=== PATIENT | male | born 1965 | race Caucasian/White ===

== ENCOUNTER 2021-06-26 11:26 | Day surgery (SDC) | payer MEDICARE ==
[2021-06-26] MEDS ORDERED: Depo-Medrol 40 MG/ML IM ONE (11:27)
[2021-06-26] MEDS ORDERED: LIDOCAINE HCL 2% 100 MG/5 ML IJ ONE (11:27)
[2021-06-26] MEDS ORDERED: DIPRIVAN 200 MG/20 ML IV ONE (12:37)
[2021-06-26] MEDS ORDERED: Lactated Ringers 1,000 ML IV ONE (12:47)
--- NOTE | 2021-06-27 09:33 | XRAY ---
Indication: Bilateral L4-S1 MBB. Intraoperative fluoroscopy provided for 5 seconds. Single digital spot image submitted for interpretation demonstrates posterior needle tips projecting over the expected left and right L4-S1 nerve roots. Correlate with intraoperative findings/report.
--- NOTE | 2021-06-27 09:59 | XRAY ---
5 seconds of fluoroscopy was used in surgery for a bilateral L4-S1 MBB.
== END 2021-06-26 13:01 | disposition home or self-care (01) ==
LOC: SDC-PAIN 11:26
PROVIDERS: ATTEND Psychiatry & Neurology Pain Medicine
DX: M47.816 Spondylosis without myelopathy or radiculopathy, lumbar region (principal); Z79.899 Other long term (current) drug therapy
CPT/HCPCS: 64493; 64494; 72020; 77002; J1030; J2704

== ENCOUNTER 2021-08-21 10:32 | Day surgery (SDC) | payer MEDICARE ==
[2021-08-21] MEDS ORDERED: Xylocaine 1% Vial 30 ML PF IJ ONE (10:33)
[2021-08-21] MEDS ORDERED: Depo-Medrol 40 MG/ML IM ONE (10:33)
[2021-08-21] MEDS ORDERED: Lactated Ringers 1,000 ML IV ONE (12:26)
[2021-08-21] MEDS ORDERED: DIPRIVAN 200 MG/20 ML IV ONE (12:41)
--- NOTE | 2021-08-21 13:37 | XRAY ---
Indication: Left T8-T10 MBB. Intraoperative fluoroscopy provided for 11 seconds. Single digital spot image submitted for interpretation demonstrates posterior needle tips projecting over the expected left T8-T10 nerve roots. Correlate with intraoperative findings/report.
--- NOTE | 2021-08-21 13:45 | XRAY ---
11 seconds fluoroscopy time in surgery for left T8-T10 MBB.
== END 2021-08-21 13:05 | disposition home or self-care (01) ==
LOC: SDC-PAIN 10:32
PROVIDERS: ATTEND Psychiatry & Neurology Pain Medicine
DX: M47.814 Spondylosis without myelopathy or radiculopathy, thoracic region (principal); Z79.899 Other long term (current) drug therapy
CPT/HCPCS: 64490; 64491; 72020; 77002; J1030; J2001; J2704

== ENCOUNTER 2021-09-17 09:43 | Day surgery (SDC) | payer MEDICARE ==
[2021-09-17] MEDS ORDERED: Marcaine Mpf 0.5% Vial 30 Ml IJ ONE (09:44)
[2021-09-17] MEDS ORDERED: Depo-Medrol 40 MG/ML IM ONE (09:44)
[2021-09-17] MEDS ORDERED: DIPRIVAN 200 MG/20 ML IV ONE (11:19)
[2021-09-17] MEDS ORDERED: Lactated Ringers 1,000 ML IV ONE (11:32)
--- NOTE | 2021-09-17 16:47 | XRAY ---
9 seconds of fluoroscopy was used in surgery for a left L3-S1 MBB.
--- NOTE | 2021-09-18 13:30 | XRAY ---
Indication: Left L3-S1 MBB. Intraoperative fluoroscopy provided for 9 seconds. Single digital spot image submitted for interpretation demonstrates posterior needle tips projecting over the expected left and L3-S1 nerve roots. Correlate with intraoperative findings/report.
== END 2021-09-17 11:37 | disposition home or self-care (01) ==
LOC: SDC-PAIN 09:43
PROVIDERS: ATTEND Psychiatry & Neurology Pain Medicine
DX: M47.816 Spondylosis without myelopathy or radiculopathy, lumbar region (principal); Z79.899 Other long term (current) drug therapy
CPT/HCPCS: 64493; 64494; 64495; 72020; 77002; J1030; J2704

== ENCOUNTER 2021-10-15 14:54 | Day surgery (SDC) | payer MEDICARE ==
[2021-10-15] MEDS ORDERED: XYLOCAINE-MPF 1% 5ML SDV IJ ONE (14:55)
[2021-10-15] MEDS ORDERED: Marcaine Mpf 0.5% Vial 30 Ml IJ ONE (14:55)
[2021-10-15] MEDS ORDERED: DIPRIVAN 200 MG/20 ML IV ONE (18:16)
[2021-10-15] MEDS ORDERED: Lactated Ringers 1,000 ML IV ONE (19:29)
--- NOTE | 2021-10-15 21:31 | XRAY ---
Indication: Left L4-S1 RFA. Intraoperative fluoroscopy provided for 28 seconds. 3 digital spot image submitted for interpretation demonstrates posterior needle tips projecting over the expected left L4-S1 nerve roots. Correlate with intraoperative findings/report.
--- NOTE | 2021-10-16 09:13 | XRAY ---
28 seconds of fluoroscopy was used in surgery for a left L4-S1 RFA.
== END 2021-10-15 18:44 | disposition home or self-care (01) ==
LOC: SDC-PAIN 14:54
PROVIDERS: ATTEND Psychiatry & Neurology Pain Medicine
DX: M47.816 Spondylosis without myelopathy or radiculopathy, lumbar region (principal); Z79.899 Other long term (current) drug therapy
CPT/HCPCS: 64635; 64636; 72100; 77002; J2704

== ENCOUNTER 2021-10-22 11:53 | Day surgery (SDC) | payer MEDICARE ==
[2021-10-22] MEDS ORDERED: LIDOCAINE HCL 1% 50 MG/5 ML VL PF IJ ONE (11:54)
[2021-10-22] MEDS ORDERED: Marcaine Mpf 0.5% Vial 30 Ml IJ ONE (11:54)
[2021-10-22] MEDS ORDERED: Depo-Medrol 40 MG/ML IM ONE (11:54)
[2021-10-22] MEDS ORDERED: DIPRIVAN 200 MG/20 ML IV ONE (12:45)
--- NOTE | 2021-10-22 13:46 | XRAY ---
Indication: Right L4-S1 RFA. Intraoperative fluoroscopy provided for 12 seconds. 3 digital spot image submitted for interpretation demonstrates posterior needle tips projecting over the expected right L4-S1 nerve roots. Correlate with intraoperative findings/report.
--- NOTE | 2021-10-22 14:59 | XRAY ---
12 seconds fluoroscopy time in surgery for right L4-S1 RFA.
[2021-10-22] MEDS ORDERED: Lactated Ringers 1,000 ML IV ONE (15:12)
== END 2021-10-22 13:13 | disposition home or self-care (01) ==
LOC: SDC-PAIN 11:53
PROVIDERS: ATTEND Psychiatry & Neurology Pain Medicine
DX: M47.816 Spondylosis without myelopathy or radiculopathy, lumbar region (principal); Z79.899 Other long term (current) drug therapy
CPT/HCPCS: 64635; 64636; 72100; 77002; J1030; J2001; J2704

== ENCOUNTER 2022-01-28 12:23 | Day surgery (SDC) | payer MEDICARE ==
[2022-01-28] MEDS ORDERED: LIDOCAINE HCL 2% 100 MG/5 ML IJ ONE (12:24)
[2022-01-28] MEDS ORDERED: Depo-Medrol 40 MG/ML IM ONE (12:24)
[2022-01-28] MEDS ORDERED: DIPRIVAN 200 MG/20 ML IV ONE (14:38)
[2022-01-28] MEDS ORDERED: Xylocaine-Mpf 2% 5 Ml Vial ONE (14:44)
[2022-01-28] MEDS ORDERED: Lactated Ringers 1,000 ML IV ONE (15:49)
--- NOTE | 2022-01-28 19:26 | XRAY ---
Indication: Left T10-L1 MBB. Intraoperative fluoroscopy provided for 11 seconds. Single digital spot image submitted for interpretation demonstrates posterior needle tips projecting over the expected left T10-L1 nerve roots. Correlate with intraoperative findings/report.
--- NOTE | 2022-01-28 19:34 | XRAY ---
11 seconds of fluoroscopy was used in surgery for a left T10-L1 MBB.
== END 2022-01-28 15:00 | disposition home or self-care (01) ==
LOC: SDC-PAIN 12:23
PROVIDERS: ATTEND Psychiatry & Neurology Pain Medicine
DX: M47.816 Spondylosis without myelopathy or radiculopathy, lumbar region (principal); Z79.899 Other long term (current) drug therapy
CPT/HCPCS: 64490; 64491; 64493; 72020; 77002; J1030; J2704

== ENCOUNTER 2022-05-27 09:57 | Day surgery (SDC) | payer MEDICARE ==
[2022-05-27] MEDS ORDERED: Depo-Medrol 40 MG/ML IM ONE (09:58)
[2022-05-27] MEDS ORDERED: BUPIVACAINE 0.5% VIAL IJ ONE (09:58)
--- NOTE | 2022-05-27 12:04 | XRAY ---
Indication: Left T11-L1 MBB. Intraoperative fluoroscopy provided for 8 seconds. Single digital spot image submitted for interpretation demonstrates posterior needle tips projecting over the expected left T11-L1 nerve roots. Correlate with intraoperative findings/report.
--- NOTE | 2022-05-27 12:10 | XRAY ---
8 seconds of fluoroscopy was used in surgery for a left T11-L1 MBB.
[2022-05-27] MEDS ORDERED: Lactated Ringers 1,000 ML IV ONE (13:30)
== END 2022-05-27 11:47 | disposition home or self-care (01) ==
LOC: SDC-PAIN 09:57
PROVIDERS: ATTEND Psychiatry & Neurology Pain Medicine
DX: M47.816 Spondylosis without myelopathy or radiculopathy, lumbar region (principal); Z79.899 Other long term (current) drug therapy
CPT/HCPCS: 64490; 64491; 72020; 77002; J1030

== ENCOUNTER 2022-06-24 13:54 | Day surgery (SDC) | payer MEDICARE ==
[2022-06-24] MEDS ORDERED: LIDOCAINE HCL 1% 50 MG/5 ML VL PF IJ ONE (13:55)
[2022-06-24] MEDS ORDERED: BUPIVACAINE 0.5% VIAL IJ ONE (13:55)
[2022-06-24] MEDS ORDERED: Depo-Medrol 40 MG/ML IM ONE (13:55)
[2022-06-24] MEDS ORDERED: DIPRIVAN 200 MG/20 ML IV ONE (16:36)
[2022-06-24] MEDS ORDERED: Lactated Ringers 1,000 ML IV ONE (17:03)
--- NOTE | 2022-06-24 20:19 | XRAY ---
Indication: Left T11-L1 RFA. Intraoperative fluoroscopy provided for 18 seconds. 2 digital spot image submitted for interpretation demonstrates posterior needle tips projecting over the expected left T11-L1 nerve roots. Correlate with intraoperative findings/report.
--- NOTE | 2022-06-25 09:24 | XRAY ---
18 seconds of fluoroscopy was used in surgery for a left T11-L1 RFA.
== END 2022-06-24 17:15 | disposition home or self-care (01) ==
LOC: SDC-PAIN 13:54
PROVIDERS: ATTEND Psychiatry & Neurology Pain Medicine
DX: M47.816 Spondylosis without myelopathy or radiculopathy, lumbar region (principal); Z79.899 Other long term (current) drug therapy
CPT/HCPCS: 64633; 64634; 72072; 77002; J1030; J2001; J2704

== ENCOUNTER 2022-10-07 15:00 | Day surgery (SDC) | payer MEDICARE ==
[2022-10-07] MEDS ORDERED: LIDOCAINE HCL 1% 50 MG/5 ML VL PF IJ ONE (15:01)
[2022-10-07] MEDS ORDERED: Depo-Medrol 40 MG/ML IM ONE (15:01)
[2022-10-07] MEDS ORDERED: BUPIVACAINE 0.5% VIAL IJ ONE (15:01)
[2022-10-07] MEDS ORDERED: DIPRIVAN 200 MG/20 ML IV ONE (15:50)
[2022-10-07] MEDS ORDERED: Lactated Ringers 1,000 ML IV ONE (16:09)
--- NOTE | 2022-10-07 19:14 | XRAY ---
Indication: Left L4-S1 RFA. Intraoperative fluoroscopy provided for 22 seconds. 4 digital spot image submitted for interpretation demonstrates posterior needle tips projecting over the expected left L4-S1 nerve roots. Correlate with intraoperative findings/report.
--- NOTE | 2022-10-08 09:30 | XRAY ---
22 seconds of fluoroscopy was used in surgery for a left L4-S1 RFA.
== END 2022-10-07 16:25 | disposition home or self-care (01) ==
LOC: SDC-PAIN 15:00
PROVIDERS: ATTEND Psychiatry & Neurology Pain Medicine
DX: M47.816 Spondylosis without myelopathy or radiculopathy, lumbar region (principal); Z79.899 Other long term (current) drug therapy
CPT/HCPCS: 64635; 64636; 72100; 77002; J1030; J2001; J2704

== ENCOUNTER 2022-12-02 13:01 | Day surgery (SDC) | payer MEDICARE ==
[2022-12-02] MEDS ORDERED: BUPIVACAINE 0.5% VIAL IJ ONE (13:02)
[2022-12-02] MEDS ORDERED: LIDOCAINE HCL 1% 50 MG/5 ML VL PF IJ ONE (13:02)
[2022-12-02] MEDS ORDERED: Depo-Medrol 40 MG/ML IM ONE (13:02)
[2022-12-02] MEDS ORDERED: DIPRIVAN 200 MG/20 ML IV ONE ×2 (15:11→15:28)
--- NOTE | 2022-12-02 16:47 | XRAY ---
Indication: Right L4-S1 RFA. Intraoperative fluoroscopy provided for 20 seconds. 4 digital spot images submitted for interpretation demonstrates posterior needle tips projecting over the expected right L4-S1 nerve roots. Correlate with intraoperative findings/report.
[2022-12-02] MEDS ORDERED: Lactated Ringers 1,000 ML IV ONE (16:52)
--- NOTE | 2022-12-02 20:14 | XRAY ---
20 seconds of fluoroscopy was used in surgery for a right L4-S1 RFA.
== END 2022-12-02 15:55 | disposition home or self-care (01) ==
LOC: SDC-PAIN 13:01
PROVIDERS: ATTEND Psychiatry & Neurology Pain Medicine
DX: M47.816 Spondylosis without myelopathy or radiculopathy, lumbar region (principal); Z79.899 Other long term (current) drug therapy
CPT/HCPCS: 64635; 64636; 72100; 77002; J1030; J2001; J2704

== ENCOUNTER 2023-06-02 07:36 | Day surgery (SDC) | payer MEDICARE ==
[2023-06-02] MEDS ORDERED: Sensorcaine 0.25% 10 ML IJ ONE (07:37)
[2023-06-02] MEDS ORDERED: Depo-Medrol 40 MG/ML IM ONE (07:37)
[2023-06-02] MEDS ORDERED: DIPRIVAN 200 MG/20 ML IV ONE (09:24)
--- NOTE | 2023-06-02 11:28 | XRAY ---
Indication: Left 9/10/11 intercostal ribs. Intraoperative fluoroscopy provided for 16 seconds. 3 digital spot images submitted for interpretation demonstrates left lateral needle tips projecting adjacent to presumed left 9/10/11 ribs. Correlate with intraoperative findings/report.
--- NOTE | 2023-06-02 11:46 | XRAY ---
16 seconds of fluoroscopy was used in surgery for a left intercostal nerve block.
[2023-06-02] MEDS ORDERED: Lactated Ringers 1,000 ML IV ONE (12:25)
== END 2023-06-02 09:56 | disposition home or self-care (01) ==
LOC: SDC-PAIN 07:36
PROVIDERS: ATTEND Psychiatry & Neurology Pain Medicine
DX: R07.81 Pleurodynia (principal)
CPT/HCPCS: 64420; 64421; 71100; 77002; J1030; J2704

== ENCOUNTER 2023-12-09 08:35 | Day surgery (SDC) | payer MEDICARE ==
[2023-12-09] MEDS ORDERED: LIDOCAINE HCL 1% 50 MG/5 ML VL PF IJ ONE (08:36)
[2023-12-09] MEDS ORDERED: Depo-Medrol 40 MG/ML IM ONE (08:36)
[2023-12-09] MEDS ORDERED: BUPIVACAINE 0.5% VIAL IJ ONE (08:36)
--- NOTE | 2023-12-09 12:15 | XRAY ---
Indication: Right shoulder and subacromial bursa injection. Intraoperative fluoroscopy provided for 12 seconds. 2 digital spot image submitted for interpretation demonstrates needle tip projecting over the right glenohumeral joint superiorly. Second needle tip subacromial. Small amount of contrast injected for both needle tip placement. Correlate with intraoperative findings/report.
--- NOTE | 2023-12-09 12:59 | XRAY ---
12 seconds of fluoroscopy was used in surgery for a right intra-articular shoulder and subacromial bursa injection.
== END 2023-12-09 10:45 | disposition home or self-care (01) ==
LOC: SDC-PAIN 08:35
PROVIDERS: ATTEND Psychiatry & Neurology Pain Medicine
DX: M19.011 Primary osteoarthritis, right shoulder (principal); M75.51 Bursitis of right shoulder
CPT/HCPCS: 20610; 73030; 77002; J2001; Q9966

== ENCOUNTER 2024-01-13 10:14 | Day surgery (SDC) | payer MEDICARE ==
[2024-01-13] MEDS ORDERED: BUPIVACAINE 0.5% VIAL IJ ONE (10:15)
[2024-01-13] MEDS ORDERED: LIDOCAINE HCL 1% 50 MG/5 ML VL PF IJ ONE (10:15)
[2024-01-13] MEDS ORDERED: Depo-Medrol 40 MG/ML IM ONE (10:15)
[2024-01-13] MEDS ORDERED: DIPRIVAN 200 MG/20 ML IV ONE (12:13)
--- NOTE | 2024-01-13 12:45 | XRAY ---
Indication: Right L4-S1 RFA. Intraoperative fluoroscopy provided for 17 seconds. 3 digital spot images submitted for interpretation demonstrates posterior needle tips projecting over the expected right L4-S1 nerve roots. Correlate with intraoperative findings/report.
--- NOTE | 2024-01-13 12:47 | XRAY ---
17 seconds of fluoroscopy was used in surgery for a right L4-S1 RFA.
[2024-01-13] MEDS ORDERED: Lactated Ringers 1,000 ML IV ONE (14:04)
== END 2024-01-13 12:51 | disposition home or self-care (01) ==
LOC: SDC-PAIN 10:14
PROVIDERS: ATTEND Psychiatry & Neurology Pain Medicine
DX: M47.816 Spondylosis without myelopathy or radiculopathy, lumbar region (principal); M47.817 Spondylosis without myelopathy or radiculopathy, lumbosacral region
CPT/HCPCS: 64635; 64636; 72100; 77002; J2001; J2704

== ENCOUNTER 2024-01-19 10:24 | Day surgery (SDC) | payer MEDICARE ==
[2024-01-19] MEDS ORDERED: BUPIVACAINE 0.5% VIAL IJ ONE (10:25)
[2024-01-19] MEDS ORDERED: LIDOCAINE HCL 1% 50 MG/5 ML VL PF IJ ONE (10:25)
[2024-01-19] MEDS ORDERED: Depo-Medrol 40 MG/ML IM ONE (10:25)
[2024-01-19] MEDS ORDERED: DIPRIVAN 200 MG/20 ML IV ONE (12:28)
[2024-01-19] MEDS ORDERED: Lactated Ringers 1,000 ML IV ONE (13:49)
--- NOTE | 2024-01-19 19:58 | XRAY ---
Indication: Left L4-S1 RFA Intraoperative fluoroscopy provided for 20 seconds. 3 digital spot image submitted for interpretation demonstrates posterior needle tips projecting over the expected left L4-S1 nerve roots. Correlate with intraoperative findings/report.
--- NOTE | 2024-01-19 20:21 | XRAY ---
20 seconds of fluoroscopy was used in surgery for a left L4-S1 RFA.
== END 2024-01-19 13:04 ==
LOC: SDC-PAIN 10:24
PROVIDERS: ATTEND Psychiatry & Neurology Pain Medicine
DX: M47.816 Spondylosis without myelopathy or radiculopathy, lumbar region (principal)
CPT/HCPCS: 64635; 64636; 72100; 77002; J2001; J2704